=== PATIENT | female | born 1995 | race Caucasian/White ===

== ENCOUNTER 2017-11-17 10:54 | Emergency (ER) | END 2017-11-17 11:14 | disposition home or self-care (01) ==

== ENCOUNTER 2018-08-25 09:04 | Emergency (ER) | payer MEDICAID, OTHER ==
[~2018-08-25] VITALS: Ht 167.6 cm; Wt 102.1 kg
[~2018-08-25 09:04] MED LIST: AMOX500C2 PO; BENZ1LOZ52 MM; IBUP-1542 PO
[2018-08-25 09:06] VITALS: BP 149/75; PULSE 89; RESP 18; Ht 167.6 cm; Wt 102.1 kg
[2018-08-25] MEDS ORDERED: POLY10DR19 LEFT EYE (10:04)
--- NOTE | 2018-08-25 10:12 | ERD ---
ER Documentation Chief Complaint Chief Complaint LEFT EYE PAIN W/ DISCHARGE X4 DAYS HPI 23-year-old female presents complaint of left eye discharge for the past 4 days. States that in the morning there is crusting. Denies any vision loss, pain, nausea, vomiting. Not taking any treatments. Denies past medical history. Denies allergies. Denies medications. Denies surgeries. Denies alcohol, tobacco, drug use. Up to date on vaccines. ROS All systems reviewed and are negative except as per history of present illness. Medications Home Meds Active Scripts Polymyxin B Sulfate-TMP* (Polymyxin B-TMP Eye Drops*) 10 Ml Drops, 1 DROP LEFT EYE QID for conjunctivitis for 7 Days, #1 BOTTLE Prov:VANESA CRUZ 08/25/18 Benzocaine/Menthol* (Cepacol* Sore Throat Lozenges) 1 Each Lozenge, 1 EACH MM q2h PRN for SORE THROAT, #20 LOZENGE Prov:AMENA VILLEGAS PA-C 11/17/17 Amoxicillin* (Amoxicillin*) 500 Mg Cap, 500 MG PO BID for 7 Days, CAP Prov:AMENA VILLEGAS PA-C 11/17/17 Ibuprofen* (Motrin*) 600 Mg Tab, 600 MG PO Q6, #30 TAB Prov:AMENA VILLEGAS PA-C 11/17/17 Allergies Allergies: Coded Allergies: No Known Allergy (Unverified , 08/25/18) PMhx/Soc History of Surgery: No Anesthesia Reaction: No Hx Neurological Disorder: No Hx Respiratory Disorders: No Hx Cardiac Disorders: No Hx Psychiatric Problems: No Hx Miscellaneous Medical Probl: No Hx Alcohol Use: No Hx Substance Use: No Hx Tobacco Use: No Smoking Status: Never smoker Physical Exam Vitals Vital Signs Date Temp Pulse Resp B/P (MAP) Pulse Ox O2 O2 Flow FiO2 Time Delivery Rate 08/25/18 98.3 89 18 149/75 99 09:06 (99) Physical Exam Const: No acute distress Head: Atraumatic Eyes: Normal Conjunctiva ENT: Normal External Ears, Nose and Mouth. Neck: Full range of motion. No meningismus. Resp: Clear to auscultation bilaterally Cardio: Regular rate and rhythm, no murmurs Abd: Soft, non tender, non distended. Normal bowel sounds Skin: No petechiae or rashes Back: No midline or flank tenderness Ext: No cyanosis, or edema Neur: Awake and alert Psych: Normal Mood and Affect Results 24 hrs Current Medications Medications Dose Sig/Anjana Start Time Status Last (Trade) Ordered Route PRN Stop Time Admin Dose Reason Admin Polymyxin/ 1 drop ONCE ONCE 08/25/18 Trimethoprim LEFT EYE 10:30 Sulfate 08/25/18 10:31 (Polytrim Oph) Procedures/MDM 23-year-old female presents complaint of left eye discharge for the past 4 days. States that in the morning there is crusting. Denies any vision loss, pain, nausea, vomiting. Not taking any treatments. Denies past medical history. Den ies allergies. Denies medications. Denies surgeries. Denies alcohol, tobacco, drug use. Up to date on vaccines. I have low suspicion for globe rupture, hyphema, glaucoma, uveitis, or foreign body based on patients history and physical exam. Decision was made to give Polytrim drops in the ER. Patient was discharged with the bottle of Polytrim and instructions for use. Patient discharged with strict ER precautions. Patient advised to follow up with PMD. All questions answered at discharge. Departure Diagnosis: Primary Impression: Conjunctivitis Conjunctivitis type: acute Acute conjunctivitis type: unspecified Laterality: left Qualified Codes: H10.32 - Unspecified acute conjunctivitis, left eye Condition: Stable Patient Instructions: Conjunctivitis Caused by Infection Referrals: [facility] YOU HAVE RECEIVED A MEDICAL SCREENING EXAM AND THE RESULTS INDICATE THAT YOU DO NOT HAVE A CONDITION THAT REQUIRES URGENT TREATMENT IN THE EMERGENCY DEPARTMENT. FURTHER EVALUATION AND TREATMENT OF YOUR CONDITION CAN WAIT UNTIL YOU ARE SEEN IN YOUR DOCTORS OFFICE WITHIN THE NEXT 1-2 DAYS. IT IS YOUR RESPONSIBILITY TO MAKE AN APPOINTMENT FOR FOLOW-UP CARE. IF YOU HAVE A PRIMARY DOCTOR --you should call your primary doctor and schedule an appointment IF YOU DO NOT HAVE A PRIMARY DOCTOR YOU CAN CALL OUR PHYSICIAN REFERRAL HOTLINE AT IF YOU CAN NOT AFFORD TO SEE A PHYSICIAN YOU CAN CHOSE FROM THE FOLLOWING COMM [facility] [address] [facility] [address] [facility] [facility] [address] [facility] [address] [facility]. [facility] [address] [facility]. [facility] [address] Additional Instructions: FOLLOW UP WITH YOUR PRIMARY CARE PHYSICIAN TOMORROW.Return to this facility if you are not improving as expected. VANESA CRUZ Aug 25, 2018 10:12
[2018-08-25] MEDS ORDERED: POLYMYXIN/TRIMETHOPRIM 10 ML OPH LEFT EYE ONE (10:30)
== END 2018-08-25 11:21 | disposition home or self-care (01) ==
LOC: FTE 09:04
DX: H10.32 Unspecified acute conjunctivitis, left eye (principal)
CPT/HCPCS: Z7502; Z7610; 99283